=== PATIENT | male | born 1965 ===

== ENCOUNTER 2021-06-15 09:35 | Inpatient (IN) | payer OTHER | END 2021-06-17 08:31 | disposition home or self-care (01) | DRG 394 | LOC: AMB-ENDOS 09:35 → SURH 15:55 → O/R 15:55 → SURH 15:58 | PROVIDERS: ADMIT Surgery; ATTEND Surgery | PROC: 0DBN8ZX Excision of Sigmoid Colon, Via Natural or Artificial Opening Endoscopic, Diagnostic (ICD-10-PCS; principal; 2021-06-15) | DX: D12.5 Benign neoplasm of sigmoid colon (principal); K51.40 Inflammatory polyps of colon without complications ==